=== PATIENT | male | born 1960 | race Caucasian/White ===

== ENCOUNTER 2018-10-13 10:34 | Day surgery (SDC) | payer OTHER ==
[2018-10-12 11:24] VITALS: BMI 25.8
[2018-10-13] MEDS ORDERED: MIDAZOLAM HCL 2 MG/2 ML SINGLE DOSE VIAL ONE (13:02)
[2018-10-13] MEDS ORDERED: ONDANSETRON 4 MG/2 ML VIAL IVPUSH PRN (13:10)
[2018-10-13] MEDS ORDERED: oxyCODONE HCL 5 MG TABLET PO PRN (13:10)
[2018-10-13] MEDS ORDERED: LACTATED RINGERS SOLUTION 1,000 ML IV SCH (13:15)
[2018-10-13] MEDS ORDERED: DEXAMETHASONE SOD PHOSPHATE 4 MG/1 ML VIAL ONE (13:18)
[2018-10-13] MEDS ORDERED: ceFAZolin SODIUM 1 GM VIAL IVPB ONE (13:19)
[2018-10-13] MEDS ORDERED: LIDOCAINE HCL/PF 2% SDV 5ML VIAL ONE (13:19)
[2018-10-13] MEDS ORDERED: ceFAZolin SODIUM 1 GM VIAL ONE (13:19)
[2018-10-13] MEDS ORDERED: PROPOFOL 20 ML ONE (13:21)
--- NOTE | 2018-10-13 13:46 | HP ---
History & Physical Update - History History: No Change - Physical Physical: No Change - Assessment Assessment: No Change - Plan Plan: No Change
[2018-10-13] MEDS ORDERED: ACETAMINOPHEN 1000 MG/100 ML VIAL (NON FORMULARY) IVPB ONE ×2 (13:49→14:07)
[2018-10-13] MEDS ORDERED: DEXTROSE 5%-0.45% SALINE 1,000 ML IV SCH (14:00)
[2018-10-13] MEDS ORDERED: IBUPROFEN 800 MG/8 ML IJ IVPB SCH (14:00)
[2018-10-13] MEDS ORDERED: ACETAMINOPHEN INJECTION 100 ML IVPB ONE (14:02)
[2018-10-13 15:41] VITALS: TEMP 98
[2018-10-13 16:39] VITALS: BP 130/85; PULSE 60
--- NOTE | 2018-10-14 08:25 | OP ---
DATE OF OPERATION: 10/13/2018 PREOPERATIVE DIAGNOSIS: Bladder diverticulum, benign prostatic hypertrophy. POSTOPERATIVE DIAGNOSIS: Bladder diverticulum, benign prostatic hypertrophy. PROCEDURE: Cystoscopy. ANESTHESIA: General. ANESTHESIOLOGIST: Lasha Altamirano MD SURGEON: Bandar Joe MD ESTIMATED BLOOD LOSS: Minimal. SPECIMENS: None. DRAINS: None. PREOPERATIVE INDICATIONS: The patient is 58-year-old male with a history of large bladder diverticulum. He is here today for cystoscopy. OPERATION: The patient was brought to the OR, placed on the table in the supine position, given general anesthesia, placed in the modified lithotomy position. IV antibiotics were given. The groin was prepped and draped sterilely. Time-out was performed. Cystoscopy was performed. The distal urethra appeared to be normal. The uterus sphincter was visualized. The prostate was obstructed with a high median bar. The bladder itself had evidence of bladder outlet obstruction. There was severe trabeculations and cellules throughout including a large diverticulum as seen on imaging. It arose from just behind the trigone with a wide mouth. No evidence of tumors or stones were seen either in the diverticulum or in the rest of the bladder. Both UOs were visualized and had clear efflux. The bladder was emptied. The patient was woken up. BANDAR JOE M.D. [id number]
== END 2018-10-13 16:15 | disposition home or self-care (01) ==
LOC: JASU-SURG 10:34
PROVIDERS: ATTEND Urology
PROC: 0TJB8ZZ Inspection of Bladder, Via Natural or Artificial Opening Endoscopic (ICD-10-PCS; principal; 2018-10-13 12:00)
DX: N32.3 Diverticulum of bladder (principal); N40.0 Benign prostatic hyperplasia without lower urinary tract symptoms; N32.89 Other specified disorders of bladder
CPT/HCPCS: 94760; J0131

== ENCOUNTER 2018-11-21 07:36 | Day surgery (SDC) | payer OTHER ==
[2018-11-17 11:27] VITALS: BMI 25.8
[2018-11-21] MEDS ORDERED: PROPOFOL 20 ML ONE ×2 (08:20)
[2018-11-21 08:52] VITALS: PULSE 59; TEMP 97.9
[2018-11-21 09:30] VITALS: BP 114/68
== END 2018-11-21 09:30 | disposition home or self-care (01) ==
LOC: FASU-ENDO 07:36
PROVIDERS: ATTEND Internal Medicine Gastroenterology
PROC: 0DJD8ZZ Inspection of Lower Intestinal Tract, Via Natural or Artificial Opening Endoscopic (ICD-10-PCS; principal; 2018-11-21 08:31)
DX: Z12.11 Encounter for screening for malignant neoplasm of colon (principal); K57.30 Diverticulosis of large intestine without perforation or abscess without bleeding

== ENCOUNTER 2018-12-08 11:56 | Day surgery (SDC) | payer OTHER ==
[2018-12-07 14:54] VITALS: BMI 25.8
[2018-12-08] MEDS ORDERED: MIDAZOLAM HCL 2 MG/2 ML SINGLE DOSE VIAL ONE (13:25)
[2018-12-08] MEDS ORDERED: LIDOCAINE HCL/PF 2% SDV 5ML VIAL ONE (13:32)
[2018-12-08] MEDS ORDERED: DEXAMETHASONE SOD PHOSPHATE 4 MG/1 ML VIAL ONE (13:32)
--- NOTE | 2018-12-08 13:36 | HP ---
History & Physical Update - History History: No Change - Physical Physical: No Change - Assessment Assessment: No Change - Plan Plan: No Change
[2018-12-08] MEDS ORDERED: PROPOFOL 20 ML ONE (13:39)
[2018-12-08] MEDS ORDERED: GLYCOPYRROLATE 0.2 MG/1 ML VIAL ONE (13:39)
[2018-12-08] MEDS ORDERED: ceFAZolin SODIUM 1 GM VIAL ONE (13:40)
[2018-12-08] MEDS ORDERED: ceFAZolin SODIUM 1 GM VIAL IVPB ONE (13:44)
[2018-12-08] MEDS ORDERED: IBUPROFEN 800 MG/8 ML IJ IVPB SCH (13:45)
[2018-12-08] MEDS ORDERED: oxyCODONE HCL 5 MG TABLET PO PRN (14:01)
[2018-12-08] MEDS ORDERED: ONDANSETRON 4 MG/2 ML VIAL IVPUSH PRN (14:01)
[2018-12-08] MEDS ORDERED: DEXTROSE 5%-0.45% SALINE 1,000 ML IV SCH (14:30)
[2018-12-08] MEDS ORDERED: ACETAMINOPHEN 1000 MG/100 ML VIAL (NON FORMULARY) IVPB ONE ×2 (14:30→15:00)
[2018-12-08] MEDS ORDERED: LACTATED RINGERS SOLUTION 1,000 ML IV SCH (14:30)
[2018-12-08] MEDS ORDERED: ACETAMINOPHEN INJECTION 100 ML IVPB ONE (14:55)
[2018-12-08] MEDS ORDERED: IBUPROFEN 800 MG/8 ML IJ IVPB ONE ×2 (15:25→15:31)
[2018-12-08 18:07] VITALS: BP 138/88; PULSE 48; TEMP 98.5
--- NOTE | 2018-12-08 20:53 | OP ---
DATE OF OPERATION: 12/08/2018 PREOPERATIVE DIAGNOSIS: Benign prostatic hypertrophy with obstruction. POSTOPERATIVE DIAGNOSIS: Benign prostatic hypertrophy with obstruction. PROCEDURE: Cystoscopy and GreenLight laser prostatectomy. SURGEON: Bandar Joe MD SPECIMENS: Prostate biopsy. ESTIMATED BLOOD LOSS: Minimal. DRAINS: A Mosquera catheter. PREOPERATIVE INDICATIONS: The patient is a 58-year-old man with history of BPH with a large bladder diverticulum. He comes to the OR for GreenLight laser of his prostate. OPERATION: The patient was brought to the OR, placed on the table in the supine position, given general anesthesia and IV antibiotics, and placed in the modified lithotomy position. The groin was prepped and draped sterilely. Cystoscopy was performed. The urethra appeared to be normal. The sphincter was visualized. The prostate was obstructed with lateral lobe hypertrophy. The bladder itself had multiple trabeculations and 1 very large bladder diverticulum just posterior to the trigone. Both UOs were visualized. Using the GreenLight laser fiber, the obstructive tissue was vaporized from the area of the bladder neck to the area just proximal to the verumontanum. Good hemostasis was maintained throughout. A total of 70,000 joules were used. The UOs were visualized, and the sphincter was also visualized at the end of the procedure. The scope was removed. The Mosquera catheter was placed. BANDAR JOE M.D. [id number]
--- NOTE | 2018-12-12 18:40 | PATH ---
Surgical Pathology Report Patient Name: HAWK CONTRERAS [facility]. Rec. #: [id number] /Age/Gender: 1960 (Age: 58) / M Account: [id number] Location: [facility] SURGICAL Taken: 12/08/2018 Received: 12/09/2018 Reported: 12/12/2018 Physicians: Bandar Joe M.D. Specimen(s) Received PROSTATE BIOPSY Clinical History Benign prostatic hyperplasia with lower urinary tract Final Diagnosis PROSTATE, BIOPSY: BENIGN FIBROMUSCULAR/STROMAL TISSUE. NO PROSTATIC GLANDULAR COMPONENT IDENTIFIED. DEEPER LEVELS HAVE BEEN EXAMINED. Electronically Signed Malia Gomez M.D. Gross Description Received in formalin, labeled "prostate biopsy" is a bolanos, irregular portion of soft tissue measuring 0.4 x 0.2 cm. in greatest dimension. The specimen is submitted in toto in one cassette. MLSZ/12/09/2018 sanml/12/09/2018
== END 2018-12-08 17:55 | disposition home or self-care (01) ==
LOC: JASU-SURG 11:56
PROVIDERS: ATTEND Urology
PROC: 0VT08ZZ Resection of Prostate, Via Natural or Artificial Opening Endoscopic (ICD-10-PCS; principal; 2018-12-08 13:00)
DX: N40.1 Benign prostatic hyperplasia with lower urinary tract symptoms (principal); N13.8 Other obstructive and reflux uropathy
CPT/HCPCS: 88305-TC; 94760; J0131